=== PATIENT | male | born 1950 | race Hispanic/Latino ===

== ENCOUNTER → 2018-11-30 | Outpatient (CLI) | payer OTHER | END | disposition home or self-care (01) | LOC: RAH 08:33 | PROVIDERS: ATTEND Internal Medicine Gastroenterology | DX: R16.0 Hepatomegaly, not elsewhere classified (principal); Z90.49 Acquired absence of other specified parts of digestive tract | CPT/HCPCS: 76700; 93975 ==

== ENCOUNTER → 2019-08-23 | Outpatient (CLI) | payer OTHER | END | disposition home or self-care (01) | LOC: RAH 08:19 | PROVIDERS: ATTEND Internal Medicine Gastroenterology | DX: K76.0 Fatty (change of) liver, not elsewhere classified (principal); I10 Essential (primary) hypertension; Z94.4 Liver transplant status; R16.0 Hepatomegaly, not elsewhere classified; R10.10 Upper abdominal pain, unspecified | CPT/HCPCS: 76700 ==

== ENCOUNTER 2020-04-07 11:48 | Inpatient (IN) | payer OTHER ==
[~2020-04-07] VITALS: Ht 170.2 cm; Wt 77.1 kg
[2020-04-07 12:21] LABS: BASOPHILS % (AUTO) 0.2 % (0.0-5.0); EOSINOPHILS % (AUTO) 0.4 % (0.0-8.0); HEMATOCRIT 33.8 % (42-54); LYMPHOCYTES % (AUTO) 2.9 % (21.0-51.0); MEAN CORPUSCULAR HEMOGLOBIN 33.9 pg (27.0-33.0); MEAN CORPUSCULAR HGB CONC 35.2 g/dL (32.0-36.0); MEAN CORPUSCULAR VOLUME 96.3 fL (79-99); NEUTROPHILS % (AUTO) 88.2 % (40.0-77.0); PLATELET COUNT (AUTO) 218 K/uL (130-400); RED BLOOD CELL COUNT(AUTO) 3.51 MIL/uL (4.50-6.20); RED CELL DISTRIBUTION WIDTH 11.7 % (11.0-15.5); WHITE BLOOD COUNT (AUTO) 16.4 K/uL (4.8-10.8)
[2020-04-07 12:27] LABS: INR 1.06 (0.85-1.15); PROTHROMBIN TIME 11.3 SEC (9.6-11.6)
[2020-04-07 12:28] LABS: PARTIAL THROMBOPLASTIN TIME 27.7 SEC (26.3-35.5)
[2020-04-07 12:32] LABS: ALBUMIN 2.7 g/dL (3.5-5.0); BILIRUBIN,TOTAL 0.7 mg/dL (0.2-1.0); CREATININE 2.5 mg/dL (0.5-1.5); POTASSIUM 4.2 mmol/L (3.5-5.1); TOTAL PROTEIN, SERUM 7.4 g/dL (6.0-8.3)
[2020-04-07] MEDS ORDERED: CEFTRIAXONE 1G VIAL ONE (12:38)
[2020-04-07] MEDS ORDERED: AZITHROMYCIN 250 MG TABLET PO ONE (12:39)
[2020-04-07] MEDS ORDERED: ACETAMINOPHEN WITH CODEINE 1 TAB TAB ONE (12:39)
[2020-04-07] MEDS ORDERED: INSULIN HUMULIN R 100 UNIT/ML 3ML ONE (12:40)
[2020-04-07 12:55] LABS: B-TYPE NATRIURETIC PEPTIDE 427 pg/mL (0-100)
[2020-04-07 13:00] LABS: ABG BASE EXCESS -6.3 mmol/L (-2.0-3.0); ABG HCO3 17.2 mmol/L (21.0-28.0); ABG PCO2 29 mmHg (35-48)
[2020-04-07 13:07] LABS: APPEARANCE,URINE Cloudy (CLEAR); BILIRUBIN,URINE Negative (NEGATIVE); COLOR,URINE Yellow (YELLOW); GLUCOSE, URINE (UA) >=1000 mg/dL (NEGATIVE); KETONES,URINE Negative (NEGATIVE); LEUKOCYTE ESTERASE ,URINE Negative (NEGATIVE); NITRATE,URINE Negative (NEGATIVE); OCCULT BLOOD,URINE Trace (NEGATIVE); PROTEIN,URINE 300 mg/dL (NEGATIVE)
[2020-04-07] MEDS ORDERED: OSELTAMIVIR PHOSPHATE 75 MG CAP ONE (13:23)
[2020-04-07 13:38] LABS: AMORPHOUS SEDIMENT,UR Few /LPF (None Seen); BACTERIA,URINE Few /HPF (None Seen); RBC,URINE 0-1 /HPF (0-1); WBC,URINE 0-1 /HPF (0-1)
[2020-04-07] MEDS ORDERED: ACETAMINOPHEN 325 MG TAB PO PRN (15:45)
[2020-04-07] MEDS ORDERED: POTASSIUM CHLORIDE 10% ELIXIR 20 MEQ/15 ML UDCUP PO PRN (15:45)
[2020-04-07] MEDS: DEXAMETHASONE SOD PHOSPHATE 4 MG/ML 1ML VIAL IVP SCH (15:45)
[2020-04-07] MEDS ORDERED: DEXTROSE 50%-WATER 50 ML DISP.SYRIN IV PRN (15:45)
[2020-04-07] MEDS ORDERED: MAGNESIUM 2GM PREMIX 50ML 50 ML IV PRN (15:45)
[2020-04-07] MEDS ORDERED: GLUCAGON 1MG KIT 1 MG ML IM PRN (15:45)
[2020-04-07] MEDS ORDERED: ONDANSETRON 4MG TABLET PO PRN (15:45)
[2020-04-07] MEDS ORDERED: LIDOCAINE HCL-MPF 1% 2ML VIAL IV PRN (15:45)
[2020-04-07] MEDS ORDERED: KCL 20 MEQ ERTAB PO PRN (15:45)
[2020-04-07] MEDS ORDERED: POTASSIUM CHLORIDE 20MEQ/100ML 100 ML IV PRN (15:45)
[2020-04-07] MEDS ORDERED: ALBUTEROL INHALER 90MCG/INH IH PRN (16:00)
[2020-04-07] MEDS: HEPARIN 5,000 UNIT VIAL SQ SCH (16:15)
[2020-04-07] MEDS: INSULIN HUMULIN R 100 UNIT/ML 3ML SQ SCH ×2 (16:30→20:27)
[2020-04-07 18:12] VITALS: BP 141/77
[2020-04-07] MEDS: OSELTAMIVIR PHOSPHATE 75 MG CAP PO SCH (20:26)
[2020-04-07 21:07] VITALS: BP 139/86
[2020-04-08] VITALS (7 sets, daily range): BP systolic 131–164; BP diastolic 66–99
[2020-04-08 03:34] LABS: ABG BASE EXCESS -0.2 mmol/L (-2.0-3.0); ABG HCO3 23.3 mmol/L (21.0-28.0); ABG OXYGEN SATURATION 95.1 % (95.0-99.0); ABG PCO2 35 mmHg (35-48)
[2020-04-08 06:03] LABS: HEMATOCRIT 31.4 % (42-54); MEAN CORPUSCULAR HGB CONC 35.4 g/dL (32.0-36.0); MEAN CORPUSCULAR VOLUME 96.3 fL (79-99); RED BLOOD CELL COUNT(AUTO) 3.26 MIL/uL (4.50-6.20); RED CELL DISTRIBUTION WIDTH 11.5 % (11.0-15.5); WHITE BLOOD COUNT (AUTO) 11.9 K/uL (4.8-10.8)
[2020-04-08 06:22] LABS: CREATININE 1.7 mg/dL (0.5-1.5); MAGNESIUM 1.5 mg/dL (1.80-2.40); POTASSIUM 3.6 mmol/L (3.5-5.1)
[2020-04-08] MEDS: HEPARIN 5,000 UNIT VIAL SQ SCH (06:28)
[2020-04-08] MEDS: INSULIN HUMULIN R 100 UNIT/ML 3ML SQ SCH ×4 (06:39→20:41)
[2020-04-08] MEDS: OSELTAMIVIR PHOSPHATE 75 MG CAP PO SCH ×2 (08:09→20:38)
[2020-04-08] MEDS: CEFTRIAXONE 1G VIAL IV SCH (08:09)
[2020-04-08] MEDS: DEXAMETHASONE SOD PHOSPHATE 4 MG/ML 1ML VIAL IVP SCH (08:09)
[2020-04-08] MEDS ORDERED: ENOXAPARIN SODIUM 40 MG/0.4 ML SYRINGE SQ SCH (09:00)
[2020-04-08] MEDS ORDERED: CHLORDIAZEPOXIDE HCL 25 MG CAP PO SCH (12:00)
[2020-04-08] MEDS: FOLIC ACID 1 MG TABLET PO SCH (12:09)
[2020-04-08] MEDS: THIAMINE HCL 100 MG TABLET PO SCH (12:10)
[2020-04-08] MEDS: AZITHROMYCIN 500MG+NS 250ML 250 ML IV SCH (17:01)
[2020-04-08] MEDS: INSULIN GLARGINE 100 UNITS/ML 10 ML VIAL SQ SCH (20:39)
[2020-04-09 04:00] VITALS: BP 148/92
[2020-04-09 04:59] LABS: HEMATOCRIT 30.6 % (42-54); MEAN CORPUSCULAR HEMOGLOBIN 34.2 pg (27.0-33.0); MEAN CORPUSCULAR HGB CONC 35.9 g/dL (32.0-36.0); RED BLOOD CELL COUNT(AUTO) 3.22 MIL/uL (4.50-6.20); RED CELL DISTRIBUTION WIDTH 11.3 % (11.0-15.5); WHITE BLOOD COUNT (AUTO) 8.4 K/uL (4.8-10.8)
[2020-04-09 05:15] LABS: CREATININE 1.5 mg/dL (0.5-1.5); CRP QUANTITATIVE 107.7 mg/L (0.00-9.0); POTASSIUM 3.6 mmol/L (3.5-5.1)
[2020-04-09] MEDS: INSULIN GLARGINE 100 UNITS/ML 10 ML VIAL SQ SCH ×2 (05:53→21:00)
[2020-04-09] MEDS: INSULIN HUMULIN R 100 UNIT/ML 3ML SQ SCH ×4 (05:53→21:00)
[2020-04-09 08:00] VITALS: BP 166/96
[2020-04-09] MEDS: OSELTAMIVIR PHOSPHATE 75 MG CAP PO SCH ×2 (08:26→21:56)
[2020-04-09] MEDS: THIAMINE HCL 100 MG TABLET PO SCH (08:27)
[2020-04-09] MEDS: CEFTRIAXONE 1G VIAL IV SCH (08:27)
[2020-04-09] MEDS: FOLIC ACID 1 MG TABLET PO SCH (08:27)
[2020-04-09] MEDS: DEXAMETHASONE SOD PHOSPHATE 4 MG/ML 1ML VIAL IVP SCH (08:28)
[2020-04-09] MEDS: ENOXAPARIN SODIUM 40 MG/0.4 ML SYRINGE SQ SCH (08:31)
[2020-04-09] MEDS ORDERED: LOPERAMIDE HCL 2 MG CAP PO SCH (11:23)
[2020-04-09] MEDS ORDERED: LOPERAMIDE HCL 2 MG CAP PO PRN (11:30)
[2020-04-09] MEDS ORDERED: CLONIDINE HCL 0.2 MG TABLET PO SCH (14:52)
[2020-04-09] MEDS ORDERED: CLONIDINE HCL 0.2 MG TABLET PO PRN (15:00)
[2020-04-09] MEDS: AZITHROMYCIN 500MG+NS 250ML 250 ML IV SCH (15:23)
[2020-04-09 20:00] VITALS: BP 156/89
[2020-04-10] VITALS: BP 165/75
[2020-04-10 03:58] VITALS: BP 157/89
[2020-04-10] MEDS: INSULIN HUMULIN R 100 UNIT/ML 3ML SQ SCH ×3 (06:24→16:30)
[2020-04-10] MEDS: INSULIN GLARGINE 100 UNITS/ML 10 ML VIAL SQ SCH (06:24)
[2020-04-10] MEDS ORDERED: CHLORDIAZEPOXIDE HCL 25 MG CAP PO SCH ×2 (07:30→14:00)
[2020-04-10] MEDS ORDERED: LORAZEPAM 2 MG/ML 1 ML VIAL IVP PRN (07:30)
[2020-04-10 07:47] VITALS: BP 145/80
[2020-04-10] MEDS: DEXAMETHASONE SOD PHOSPHATE 4 MG/ML 1ML VIAL IVP SCH (08:33)
[2020-04-10] MEDS: FOLIC ACID 1 MG TABLET PO SCH (08:33)
[2020-04-10] MEDS: CEFTRIAXONE 1G VIAL IV SCH (08:34)
[2020-04-10] MEDS: OSELTAMIVIR PHOSPHATE 75 MG CAP PO SCH (08:34)
[2020-04-10] MEDS: THIAMINE HCL 100 MG TABLET PO SCH (08:34)
[2020-04-10] MEDS: ENOXAPARIN SODIUM 40 MG/0.4 ML SYRINGE SQ SCH (08:35)
[2020-04-10] MEDS ORDERED: OMEP40CA21 PO (09:14)
[2020-04-10] MEDS ORDERED: LATA2.5D14 OU (09:14)
[2020-04-10] MEDS ORDERED: SUCR1TAB2 PO (09:14)
[2020-04-10 12:19] VITALS: BP 155/102
[2020-04-10] MEDS ORDERED: CHLORDIAZEPOXIDE HCL 25 MG CAP PO ONE (14:00)
[2020-04-10] MEDS: AZITHROMYCIN 500MG+NS 250ML 250 ML IV SCH (15:48)
== END 2020-04-10 19:00 | disposition home or self-care (01) | DRG 177 ==
LOC: EDH 11:48 → EDHIP 14:35 → 2AH 17:58
PROVIDERS: ADMIT Internal Medicine Infectious Disease; ATTEND Internal Medicine Infectious Disease
DX: U07.1 COVID-19 (principal); J96.91 Respiratory failure, unspecified with hypoxia; J10.08 Influenza due to other identified influenza virus with other specified pneumonia; N17.9 Acute kidney failure, unspecified; Z94.4 Liver transplant status; F10.239 Alcohol dependence with withdrawal, unspecified; E87.1 Hypo-osmolality and hyponatremia; D84.9 Immunodeficiency, unspecified; E11.9 Type 2 diabetes mellitus without complications; E83.42 Hypomagnesemia; G47.00 Insomnia, unspecified; E66.9 Obesity, unspecified; I10 Essential (primary) hypertension; Z68.34 Body mass index [BMI] 34.0-34.9, adult; Z83.3 Family history of diabetes mellitus
CPT/HCPCS: 36415; 36600; 71045; 80048; 80053; 81001; 82550; 82803; 82948; 83605; 83615; 83735; 83880; 84100; 84145; 84484; 85025; 85027; 85378; 85610; 85730; 86140; 87040; 87426; 87804; 87880; 93005; 93306; 93356; 99291; G0378; J0456; J0696; J1100; J1650; J1815; J2060